=== PATIENT | male | born 1990 | race Caucasian/White ===

== ENCOUNTER 2018-10-11 18:26 | Emergency (ER) | payer OTHER ==
[~2018-10-11] VITALS: Ht 193 cm; Wt 122.7 kg
[2018-10-11] MEDS ORDERED: IBUP-1022 PO (18:31)
[2018-10-11] MEDS ORDERED: NAPR-50 PO (21:15)
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
[2018-10-11 21:26] VITALS: BP 122/91
== END 2018-10-11 21:28 | disposition home or self-care (01) ==
LOC: M ED 18:26
DX: S43.401A Unspecified sprain of right shoulder joint, initial encounter (principal); S63.91XA Sprain of unspecified part of right wrist and hand, initial encounter; W19.XXXA Unspecified fall, initial encounter

== ENCOUNTER → 2021-12-29 | Outpatient (REF) ==
[~2021-12-29] MED LIST: IBUP-1022 PO; NAPR-837 PO
== END ==
LOC: M PLAIMG 12:09
PROVIDERS: ATTEND Internal Medicine
DX: M19.90 Unspecified osteoarthritis, unspecified site (principal)

== ENCOUNTER 2024-06-30 21:37 | Emergency (ER) | payer MEDICAID, OTHER, SELFPAY ==
[~2024-06-30] VITALS: Ht 193 cm; Wt 154.2 kg
[2024-06-30 21:54] VITALS: TEMP 98.9
[2024-06-30] MEDS ORDERED: ISOVUE-370 76% 100ML VIAL As Ordered ONE (22:31)
[2024-06-30] MEDS: BOOSTRIX VACCINE (TETANUS/DIPHTH/ACEL. PERTUSSIS) 0.5ML SYR IM.IMMUN ONE (23:10)
[2024-06-30 23:30] VITALS: BP 117/66; O2SAT 100
== END 2024-06-30 23:44 | disposition home or self-care (01) ==
LOC: M ED 21:37
DX: S30.810A Abrasion of lower back and pelvis, initial encounter (principal); Y92.9 Unspecified place or not applicable; Y93.9 Activity, unspecified; Y99.9 Unspecified external cause status; V29.408A Other motorcycle driver injured in collision with unspecified motor vehicles in traffic accident, initial encounter; K21.9 Gastro-esophageal reflux disease without esophagitis; F17.210 Nicotine dependence, cigarettes, uncomplicated; F10.10 Alcohol abuse, uncomplicated; Z23 Encounter for immunization; Z79.1 Long term (current) use of non-steroidal anti-inflammatories (NSAID); Z79.899 Other long term (current) drug therapy
CPT/HCPCS: 71260; 72131; 74177; 80047; 90471; 90715; 93041; 94760; 99284; Q9967